=== PATIENT | male | born 1945 | race Caucasian/White ===

== ENCOUNTER 2017-03-17 12:03 | Observation (INO) | payer OTHER ==
[2017-03-17] VITALS (8 sets, daily range): BP systolic 112–161; BP diastolic 67–94; PULSE 55–72; RESP 18–20; TEMP 97.6–98.1; O2SAT 94–98
[~2017-03-17 12:03] MED LIST: ASPI81TA82 PO; CARV3.125 PO; ISOS30 PO; LISI-357 PO; PERC10TA27 PO; PRAS10TA PO; PRIL20TA2 PO; ROSU40 PO
[2017-03-17] MEDS ORDERED: CARV3.12 PO (12:12)
[2017-03-17] MEDS ORDERED: ROSU40 PO (12:12)
[2017-03-17] MEDS ORDERED: ASPI81CH CHEW (12:12)
[2017-03-17] MEDS ORDERED: LISI-519 PO (12:12)
[2017-03-17] MEDS ORDERED: PRAS10TA PO (12:12)
[2017-03-17] MEDS ORDERED: OMEP20TA PO (12:12)
[2017-03-17] MEDS ORDERED: SODIUM CHLORIDE 0.9% FLUSH 10 ML FLUSH IVF PRN (12:15)
[2017-03-17] MEDS ORDERED: ASPIRIN 81 MG CHEW TAB PO ONE (12:15)
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
--- NOTE | 2017-03-17 12:38 | RADRPT ---
EXAM DATE/TIME: 03/17/2017 12:30 [facility] COMPARISON: CHEST SINGLE AP, August 28, 2014, 17:10. INDICATIONS : Chest pain. MEDICAL HISTORY : Chronic obstructive pulmonary disease. Hypertension Myocardial infarction. SURGICAL HISTORY : CABG. Ileostomy, Stent. ENCOUNTER: Initial ACUITY: 1 day PAIN SCORE: 5/10 LOCATION: Bilateral chest FINDINGS: A single view of the chest demonstrates the lungs to be symmetrically aerated without evidence of mas s, infiltrate or effusion. The cardiomediastinal contours reveal compensated left ventricular cardio megaly.. Osseous structures are intact with evidence of prior remote median sternotomy probable card iac surgery CABG.. CONCLUSION: Prior median sternotomy CABG. Compensated left ventricular cardiomegaly. No acute cardiopulmonary pro cess Arsen Horne MD on March 17, 2017 at 12:35 Board Certified Radiologist. This report was verified electronically.
[2017-03-17] MEDS ORDERED: RANO500 PO (12:45)
[2017-03-17 13:49] LABS: AUTOMATED NEUTROPHIL # 3.7 TH/MM3 (1.8-7.7); BASOPHIL % 0.6 % (0.0-2.0); EOSINOPHIL # 0.2 TH/MM3 (0-0.4); EOSINOPHIL % 3.5 % (0.0-4.0); HEMATOCRIT 44.9 % (39.0-51.0); HEMO FLAGS DIFF FINAL; LYMPHOCYTE # 1.6 TH/MM3 (1.0-4.8); MEAN CELL VOLUME 92.4 FL (80.0-100.0); MEAN CORPUSCULAR HGB CONC 33.5 % (32.0-36.0); MONO % 7.9 % (0.0-8.0); PLATELET COUNT 158 TH/MM3 (150-450); RED BLOOD COUNT 4.86 MIL/MM3 (4.50-5.90); RED CELL DISTRIBUTION WIDTH 13.7 % (11.6-17.2)
[2017-03-17 13:59] LABS: APTT (PATIENT) 26.2 SEC (24.3-30.1); INTERNATIONAL NORMALIZED RATIO 0.9 RATIO
[2017-03-17 14:09] LABS: ANION GAP 5 MEQ/L (5-15); BICARBONATE 27.6 MEQ/L (21.0-32.0); BLOOD UREA NITROGEN 12 MG/DL (7-18); CHLORIDE 108 MEQ/L (98-107); GLOMERULAR FILTRATION RATE 97 ML/MIN (>89); SODIUM (NA) 141 MEQ/L (136-145)
[2017-03-17 14:17] LABS: CREATINE KINASE 68 U/L (39-308)
[2017-03-17] MEDS ORDERED: ACETAMINOPHEN 500 MG CPLT PO PRN (14:45)
[2017-03-17] MEDS ORDERED: NITROGLYCERIN 0.4 MG SL 25 TABS/BTL SL PRN (14:45)
[2017-03-17] MEDS ORDERED: ONDANSETRON HCL 4 MG/2 ML VIAL IV PUSH PRN (14:45)
--- NOTE | 2017-03-17 14:52 | EKG ---
Date Performed: 03/17/2017 Time Performed: 12:14:29 PTAGE: 71 years EKG: Sinus rhythm NONSPECIFIC T-WAVE ABNORMALITY ABNORMAL ECG PREVIOUS TRACING : 08/30/2014 13.49 No significant change from previous tracing noted. DOCTOR: Mikael Duffy Interpretating Date/Time 03/17/2017 14:51:38
[2017-03-17 16:21] LABS: CREATINE KINASE 55 U/L (39-308)
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
--- NOTE | 2017-03-17 18:24 | EKG ---
Date Performed: 03/17/2017 Time Performed: 15:42:29 PTAGE: 71 years EKG: SINUS BRADYCARDIA WITH FIRST DEGREE AV BLOCK NONSPECIFIC T-WAVE ABNORMALITY ABNORMAL ECG Si nce PREVIOUS TRACING , no significant change noted PREVIOUS TRACIN03/17/2017 12.14 DOCTOR: Madai Mendes Interpretating Date/Time 03/17/2017 18:23:43
[2017-03-17] MEDS: SODIUM CHLORIDE 0.9% FLUSH 10 ML FLUSH IV FLUSH SCH (20:26)
[2017-03-17] MEDS: CARVEDILOL 3.125 MG TAB PO SCH (20:26)
[2017-03-17] MEDS: RANOLAZINE 500 MG EXTENDED RELEASE TAB PO SCH (20:34)
[2017-03-17 21:10] LABS: CREATINE KINASE 57 U/L (39-308)
[2017-03-18] VITALS: PULSE 72
[2017-03-18 04:00] VITALS: PULSE 60
[2017-03-18 07:27] VITALS: BP 127/84; PULSE 61; RESP 18; TEMP 98; O2SAT 97
[2017-03-18 08:00] VITALS: PULSE 54
[2017-03-18 08:12] VITALS: O2SAT 93
[2017-03-18] MEDS ORDERED: PRASUGREL 10 MG TAB PO SCH (09:00)
[2017-03-18] MEDS ORDERED: ASPIRIN 325 MG TAB PO SCH (09:00)
[2017-03-18] MEDS ORDERED: LISINOPRIL 5 MG TAB PO SCH (09:00)
[2017-03-18] MEDS ORDERED: NON-FORMULARY DRUG (Omeprazole 20 MG) PO SCH (09:00)
[2017-03-18] MEDS: SODIUM CHLORIDE 0.9% FLUSH 10 ML FLUSH IV FLUSH SCH (09:00)
[2017-03-18] MEDS ORDERED: PANTOPRAZOLE SOD 20 MG DELAYED RELEASE TAB PO SCH (09:00)
[2017-03-18] MEDS: RANOLAZINE 500 MG EXTENDED RELEASE TAB PO SCH (09:00)
[2017-03-18] MEDS ORDERED: NON-FORMULARY DRUG (Rosuvastatin (Crestor) 40 MG) PO SCH ×2 (09:00)
[2017-03-18] MEDS: CARVEDILOL 3.125 MG TAB PO SCH (09:00)
[2017-03-18] MEDS ORDERED: REGADENOSON INJ 0.4 MG/5 ML SYR ONE (12:19)
--- NOTE | 2017-03-18 13:54 | RADRPT ---
EXAM DATE/TIME: 03/18/2017 11:41 [facility] COMPARISON: MYOCARDIAL PERF PHARM SPECT, GATED W/EF, August 29, 2014, 8:49. INDICATIONS : Angina. DOSE: 35 mCi Tc99m Myoview at stress. 11 mCi Tc99m Myoview at rest. 0.4 mg Lexiscan STRESS SYMPTOMS: Shortness of breath, stomach pressure. EJECTION FRACTION: 64% MEDICAL HISTORY : Hypertension. Aneurysm, abdominal. Chronic obstructive pulmonary disease. SURGICAL HISTORY : Cholecystectomy. CABG ENCOUNTER: Initial ACUITY: 1 day PAIN SCALE: 4/10 LOCATION: Bilateral chest TECHNIQUE: The patient underwent pharmacologic stress with infusion of prescribed dose. Continuous ECG tracing was monitored during stress. Gated SPECT imaging was performed after stress and conventional SPECT i maging was performed at rest. The examination was performed on a SPECT/CT scanner, both attenuation and non-corrected datasets were reviewed. FINDINGS: DISTRIBUTION: The maximum perfused segment at stress is in the septal wall. PERFUSION STUDY: There is a fixed defect involving the lateral wall. No reversible defects appreciated. GATED STUDY: There is intact wall motion and thickening without hypokinetic or dyskinetic segments. CONCLUSION: 1. Fixed defect involving the lateral wall. 2. No reversible defect observed to suggest acute ischemia. RISK CATEGORY: Low Eduardo Costello Jr., MD on March 18, 2017 at 13:39 Board Certified Radiologist. This report was verified electronically.
--- NOTE | 2017-03-18 14:11 | HHI.DCPOC ---
Discharge Care Plan Diagnosis: (1) Hx of CABG (2) H/O heart artery stent (3) Chest pain (4) CAD (coronary artery disease) (5) Hypertension (6) Hyperlipidemia Goals to Promote Your Health * To prevent worsening of your condition and complications * To maintain your health at the optimal level Directions to Meet Your Goals Take your medications as prescribed Follow your dietary instruction Follow activity as directed Keep your appointments as scheduled Take your immunizations and boosters as scheduled If your symptoms worsen call your PCP, if no PCP go to Urgent Care Center or Emergency Room Smoking is Dangerous to Your Health. Avoid second hand smoke Call the 24-hour hour crisis hotline for domestic abuse at Preet Batres Mar 18, 2017 14:11
--- NOTE | 2017-03-18 15:12 | EKG ---
Date Performed: 03/17/2017 Time Performed: 18:23:39 PTAGE: 71 years EKG: Sinus rhythm WITH FIRST DEGREE AV BLOCK POSSIBLE OLD INFERIOR MYOCARDIAL INFARCTION ABNORMAL ECG NO CHANGE PREVIOUS TRACING : 03/17/2017 15.42 DOCTOR: Roderick Hatfield Interpretating Date/Time 03/18/2017 15:10:15
--- NOTE | 2017-03-19 09:46 | TR ---
Date Performed: 03/18/2017 Time Performed: 12:27:58 DOCTOR: Roderick Hatfield DRUG LIST: CLINICAL HISTORY: REASON FOR TEST: REASON FOR ENDING: OBSERVATION: CONCLUSION: Lexiscan stress test was performed under standard four minute protocol. Radionuclide was injected one minute prior to ending the test. Non specific ST depression was noted laterally but no electrocardiographic abormalities were present which were diagnostic of ischemia. Nuclear imaging and interpretation are pending. COMMENTS:
== END 2017-03-18 14:32 | disposition home or self-care (01) ==
LOC: NEPE 12:03 → NEDA 14:25 → NEPFCDU 16:42
PROVIDERS: ADMIT Internal Medicine Interventional Cardiology; ATTEND Internal Medicine Interventional Cardiology
DX: R07.9 Chest pain, unspecified (principal); R06.02 Shortness of breath; I25.119 Atherosclerotic heart disease of native coronary artery with unspecified angina pectoris; I11.9 Hypertensive heart disease without heart failure; I51.7 Cardiomegaly; E78.00 Pure hypercholesterolemia, unspecified; J44.9 Chronic obstructive pulmonary disease, unspecified; I44.0 Atrioventricular block, first degree; R00.1 Bradycardia, unspecified; R94.31 Abnormal electrocardiogram [ECG] [EKG]; I25.2 Old myocardial infarction; K21.9 Gastro-esophageal reflux disease without esophagitis; G89.29 Other chronic pain; K58.9 Irritable bowel syndrome, unspecified; F43.10 Post-traumatic stress disorder, unspecified; E88.81 Metabolic syndrome and other insulin resistance; F41.9 Anxiety disorder, unspecified; F32.9 Major depressive disorder, single episode, unspecified; F17.200 Nicotine dependence, unspecified, uncomplicated; Z79.899 Other long term (current) drug therapy; Z79.82 Long term (current) use of aspirin; Z95.1 Presence of aortocoronary bypass graft; Z95.5 Presence of coronary angioplasty implant and graft; Z85.51 Personal history of malignant neoplasm of bladder; Z93.2 Ileostomy status
CPT/HCPCS: 71010; 78452; 80048; 82550; 83735; 84484; 85025; 85610; 85730; 93005; 93017; 99285; A9502; G0378; J2785